=== PATIENT | female | born 1990 | race Caucasian/White ===

== ENCOUNTER → 2019-03-20 | Outpatient (REF) | payer BC ==
[2019-03-20 13:02] LABS: APPEARANCE, URINE HAZY (CLEAR); BACTERIA, URINE AUTO 1+ (NEGATIVE); BILIRUBIN, URINE AUTO NEGATIVE (NEGATIVE); BLOOD, URINE BLOOD NEGATIVE (NEGATIVE); COLOR, URINE YELLOW (YELLOW); GLUCOSE, URINE (UA) AUTO NEGATIVE (NEGATIVE); KETONE, URINE AUTO NEGATIVE (NEGATIVE); LEUKOCYTE ESTERASE, URINE AUTO NEGATIVE (NEGATIVE); MUCUS, URINE SMALL (NEGATIVE); NITRITE, URINE AUTO NEGATIVE (NEGATIVE); PROTEIN, URINE AUTO NEGATIVE (NEGATIVE); RBC, URINE AUTO 2 /HPF (0-3); SPECIFIC GRAVITY URINE AUTO 1.023 (1.002-1.035); SQUAMOUS EPITHELIAL CELL UR AU 1 /HPF (0-6); UROBILINOGEN, URINE AUTO 0.2 mg/dL (0.0-2.0); WBC, URINE AUTO 0 /HPF (0-3)
[2019-03-20 13:08] LABS: BASO # 0.1 10^3/uL (0.0-0.2); BASO % 1.3 % (0.0-1.0); EOS # 0.1 10^3/uL (0.0-0.5); EOS % 1.1 % (0.0-3.0); HEMATOCRIT 37.8 % (36.0-47.0); HEMOGLOBIN 11.5 g/dl (12.0-15.5); LYMPH # 1.3 10^3/uL (1.5-5.0); LYMPH % 28.2 % (24.0-44.0); MEAN CORPUSCULAR HEMOGLOBIN 26.3 pg (27.0-33.0); MEAN CORPUSCULAR HGB CONC 30.4 g/dl (32.0-36.5); MEAN CORPUSCULAR VOLUME 86.5 fl (80.0-96.0); MONO # 0.5 10^3/uL (0.0-0.8); MONO % 11.2 % (0.0-5.0); NEUTROPHILS # 2.7 10^3/uL (1.5-8.5); NEUTROPHILS % 57.8 % (36.0-66.0); PLATELET COUNT, AUTOMATED 345 10^3/uL (150-450); RED BLOOD COUNT 4.37 10^6/uL (4.00-5.40); WHITE BLOOD COUNT 4.7 10^3/uL (4.0-10.0)
[2019-03-20 13:18] LABS: ALBUMIN 3.8 GM/DL (3.2-5.2); ALT/SGPT 35 U/L (12-78); BILIRUBIN,TOTAL 0.3 MG/DL (0.2-1.0); BLOOD UREA NITROGEN 14 MG/DL (7-18); CARBON DIOXIDE LEVEL 31 MEQ/L (21-32); CHLORIDE LEVEL 103 MEQ/L (98-107); CHOLESTEROL LEVEL 205 MG/DL (<200); CREATININE FOR GFR 0.72 MG/DL (0.55-1.30); FREE T4 0.97 NG/DL (0.76-1.46); GLOMERULAR FILTRATION RATE > 60.0 (>60); GLUCOSE, FASTING 80 MG/DL (70-100); HDL CHOLESTEROL 94 MG/DL (>40); LDL CHOLESTEROL 102 MG/DL (<100); NON-HDL-C 111 MG/DL; POTASSIUM SERUM 4.1 MEQ/L (3.5-5.1); SODIUM LEVEL 139 MEQ/L (136-145); TOTAL PROTEIN 7.4 GM/DL (6.4-8.2); TRIGLYCERIDES LEVEL 43 MG/DL (<150)
[2019-03-20 13:21] LABS: TOTAL 25(OH) VITAMIN D 52.5 NG/ML (30.0-100.0)
[2019-03-20 14:39] LABS: HEMOGLOBIN A1c 5.6 %
== END ==
LOC: M LAB REF 12:11
PROVIDERS: ATTEND Nurse Practitioner Family
DX: Z13.29 Encounter for screening for other suspected endocrine disorder (principal); Z13.9 Encounter for screening, unspecified

== ENCOUNTER → 2020-05-27 | Outpatient (REF) | payer OTHER ==
[2020-05-27 17:44] LABS: BASO # 0.1 10^3/uL (0.0-0.2); BASO % 0.6 % (0.0-1.0); EOS # 0.1 10^3/uL (0.0-0.5); EOS % 0.9 % (0.0-3.0); HEMATOCRIT 41.4 % (36.0-47.0); HEMOGLOBIN 12.8 g/dl (12.0-15.5); LYMPH # 1.6 10^3/uL (1.5-5.0); MEAN CORPUSCULAR HEMOGLOBIN 25.8 pg (27.0-33.0); MEAN CORPUSCULAR HGB CONC 30.9 g/dl (32.0-36.5); MEAN CORPUSCULAR VOLUME 83.5 fl (80.0-96.0); MONO # 0.6 10^3/uL (0.0-0.8); MONO % 7.6 % (0.0-5.0); NEUTROPHILS # 5.7 10^3/uL (1.5-8.5); NEUTROPHILS % 70.5 % (36.0-66.0); PLATELET COUNT, AUTOMATED 311 10^3/uL (150-450); RED BLOOD COUNT 4.96 10^6/uL (4.00-5.40); WHITE BLOOD COUNT 8.1 10^3/uL (4.0-10.0)
[2020-05-27 18:36] LABS: ALBUMIN 4.3 GM/DL (3.2-5.2); ALT/SGPT 20 U/L (12-78); BILIRUBIN,TOTAL 0.6 MG/DL (0.2-1.0); BLOOD UREA NITROGEN 11 MG/DL (7-18); CALCIUM LEVEL 9.3 MG/DL (8.5-10.1); CARBON DIOXIDE LEVEL 26 MEQ/L (21-32); CHLORIDE LEVEL 102 MEQ/L (98-107); CREATININE FOR GFR 0.61 MG/DL (0.55-1.30); GLOMERULAR FILTRATION RATE > 60.0 (>60); GLUCOSE, FASTING 58 MG/DL (70-100); HCG, SERUM QUANTITATIVE 82951 MIU/ML; POTASSIUM SERUM 4.3 MEQ/L (3.5-5.1); SODIUM LEVEL 136 MEQ/L (136-145); TOTAL PROTEIN 8.2 GM/DL (6.4-8.2)
== END ==
LOC: M LAB REF 16:51
PROVIDERS: ATTEND Physician Assistant
DX: Z33.1 Pregnant state, incidental (principal)

== ENCOUNTER → 2020-06-10 | Outpatient (REF) | payer OTHER ==
[2020-06-10 11:36] LABS: HEMATOCRIT 36.3 % (36.0-47.0); HEMOGLOBIN 11.3 g/dl (12.0-15.5); MEAN CORPUSCULAR HEMOGLOBIN 26.2 pg (27.0-33.0); MEAN CORPUSCULAR HGB CONC 31.1 g/dl (32.0-36.5); PLATELET COUNT, AUTOMATED 376 10^3/uL (150-450); RED BLOOD COUNT 4.32 10^6/uL (4.00-5.40); WHITE BLOOD COUNT 6.7 10^3/uL (4.0-10.0)
[2020-06-10 12:53] LABS: HEPATITIS C VIRUS ABY INDEX < 0.0 INDEX (<0.8); HIV 1&2 SCREEN CENTAUR NEGATIVE (NEGATIVE)
[2020-06-11 12:27] LABS: CHLAMYDIA DNA AMPLIFICATION NEGATIVE (NEGATIVE); GC DNA AMPLIFICATION NEGATIVE (NEGATIVE)
== END ==
LOC: M PLALAB 09:00
PROVIDERS: ATTEND Obstetrics & Gynecology
DX: Z34.81 Encounter for supervision of other normal pregnancy, first trimester (principal)

== ENCOUNTER → 2020-08-26 | Outpatient (CLI) | payer OTHER ==
--- NOTE | 2020-08-26 11:06 | REP ---
INDICATION: ANATOMY COMPARISON: None. TECHNIQUE: Transabdominal obstetrical ultrasound with color Doppler evaluation. FINDINGS: Examination demonstrates a single live intrauterine in cephalic presentation. motion is identified by technologist. Placenta is noted posterior and grade 1 without evidence for placenta previa or abruption. Amniotic fluid volume is normal. Cervix measures 3.3 cm in length and appears closed.. Gestational age by LMP 20 weeks 0 days with STAR 01/13/2021. Gestational age by current measurements 19 weeks 6 days 9 with STAR 02/13/2021. FHR equals 146 beats per minute. BPD: 4.5 cm at 19 weeks 3 days HC: 17.7 cm at 20 weeks 1 day AC: 14.7 cm at 20 weeks 0 days FL: 3.2 cm at 19 weeks 6 days HL: 2.9 cm at 19 weeks 4 days HC/AC: 1.20 Estimated weight 323 grams (51stpercentile). Anatomical assessment demonstrates normal structures including cranium, choroid plexus, cavum, cerebellum/posterior fossa, facial features, lungs, four-chamber heart/ventricular outflow tracts, diaphragm, stomach, cord insertion/three-vessel cord, kidneys/bladder, spine, and extremities. IMPRESSION: Single live intrauterine in cephalic presentation demonstrating appropriate estimated weight. Anatomical assessment is complete and normal. <Electronically signed by Igor Gonzalez > 08/26/20 [id number]
== END ==
LOC: M WHC 07:57
PROVIDERS: ATTEND Advanced Practice Midwife
DX: Z36.89 Encounter for other specified antenatal screening (principal); Z3A.20 20 weeks gestation of pregnancy

== ENCOUNTER → 2020-09-29 | Outpatient (REF) | payer OTHER ==
[2020-09-29 13:47] LABS: HEMATOCRIT 27.6 % (36.0-47.0); HEMOGLOBIN 8.2 g/dl (12.0-15.5); MEAN CORPUSCULAR HEMOGLOBIN 24.5 pg (27.0-33.0); MEAN CORPUSCULAR HGB CONC 29.7 g/dl (32.0-36.5); MEAN CORPUSCULAR VOLUME 82.4 fl (80.0-96.0); PLATELET COUNT, AUTOMATED 334 10^3/uL (150-450); RED BLOOD COUNT 3.35 10^6/uL (4.00-5.40); WHITE BLOOD COUNT 11.7 10^3/uL (4.0-10.0)
== END ==
LOC: M PLALAB 08:12
PROVIDERS: ATTEND Advanced Practice Midwife
DX: Z34.82 Encounter for supervision of other normal pregnancy, second trimester (principal)

== ENCOUNTER 2020-10-13 07:08 | Outpatient (CLI) | payer OTHER ==
[~2020-10-13] VITALS: Ht 157.5 cm; Wt 65.9 kg
[~2020-10-13 07:08] MED LIST: IRON SUCROSE 500 MG in NS 250 ML OVER 4 HRS IV ONE
[2020-10-13 07:17] VITALS: BP 120/57
[2020-10-13] MEDS ORDERED: ZOLO25TA PO (07:33)
[2020-10-13] MEDS ORDERED: MULTTAB20 PO (07:33)
[2020-10-13] MEDS ORDERED: CLAR10CA3 PO (07:33)
[2020-10-13 08:00] VITALS: BP 118/60
[2020-10-13 09:00] VITALS: BP 115/69
[2020-10-13 10:00] VITALS: BP 112/60
[2020-10-13 11:00] VITALS: BP 110/58
[2020-10-13 12:00] VITALS: BP 113/58
== END 2020-10-13 12:00 | disposition home or self-care (01) ==
LOC: M INFU 07:08
PROVIDERS: ATTEND Advanced Practice Midwife
DX: D50.9 Iron deficiency anemia, unspecified (principal)
CPT/HCPCS: 96365; 96366; J1756

== ENCOUNTER → 2020-11-23 | Outpatient (CLI) | payer OTHER ==
[~2020-11-23] MED LIST changes: +CLAR10CA3 PO; -IRON SUCROSE 500 MG in NS 250 ML OVER 4 HRS IV ONE; +MULTTAB20 PO; +ZOLO25TA PO
[2020-11-23 14:11] LABS: HEMATOCRIT 36.1 % (36.0-47.0); HEMOGLOBIN 11.2 g/dl (12.0-15.5); MEAN CORPUSCULAR HEMOGLOBIN 27.9 pg (27.0-33.0); MEAN CORPUSCULAR VOLUME 89.8 fl (80.0-96.0); PLATELET COUNT, AUTOMATED 346 10^3/uL (150-450); RED BLOOD COUNT 4.02 10^6/uL (4.00-5.40); WHITE BLOOD COUNT 13.4 10^3/uL (4.0-10.0)
== END ==
LOC: M PLALAB 10:07
PROVIDERS: ATTEND Advanced Practice Midwife
DX: O99.013 Anemia complicating pregnancy, third trimester (principal); D64.9 Anemia, unspecified

== ENCOUNTER → 2020-12-14 | Outpatient (REF) | payer OTHER | LOC: M SFHCWAGY 13:06 | PROVIDERS: ATTEND Advanced Practice Midwife | DX: Z36.89 Encounter for other specified antenatal screening (principal); Z3A.35 35 weeks gestation of pregnancy ==

== ENCOUNTER 2021-01-14 19:36 | Inpatient (IN) | payer BC, OTHER ==
[~2021-01-14] VITALS: Ht 160 cm; Wt 77.9 kg
[2021-01-14 19:54] VITALS: BP 134/76
[2021-01-14 20:36] VITALS: BP 128/77
[2021-01-14 21:41] VITALS: BP 125/71
[2021-01-14] MEDS: LR 1,000 ML IV SCH (22:42)
[2021-01-14 22:56] LABS: HEMATOCRIT 41.6 % (36.0-47.0); HEMOGLOBIN 14.1 g/dl (12.0-15.5); MEAN CORPUSCULAR HEMOGLOBIN 30.5 pg (27.0-33.0); MEAN CORPUSCULAR HGB CONC 33.9 g/dl (32.0-36.5); PLATELET COUNT, AUTOMATED 263 10^3/uL (150-450); RED BLOOD COUNT 4.62 10^6/uL (4.00-5.40); WHITE BLOOD COUNT 14.9 10^3/uL (4.0-10.0)
[2021-01-14 23:14] VITALS: BP 136/76
--- NOTE | 2021-01-14 23:48 | HPEPDOC ---
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 Past Medical History Surgical History: Morven teeth Family History Significant Family History: Cancer Social History Marital Status: Psychosocial History: Anxiety, Depression * Smoker: non-smoker Alcohol: Denies Drugs: denies Allergies Coded Allergies: Penicillins (Verified Allergy, Intermediate, HIVES AND ITCHING, 10/13/20) Sulfa (Sulfonamide Antibiotics) (Verified Allergy, Intermediate, HIVES AND ITCHING, 10/13/20) Medications Scheduled Loratadine (Claritin) 10 Mg Capsule, 10 MG PO DAILY for allergy symptoms No122/Iron/Folic Acid ( Multi Tablet) 1 Each Tablet, 1 TAB PO DAILY Sertraline Hcl (Zoloft) 25 Mg Tablet, 25 MG PO DAILY Physical Examination Physical Examination GENERAL: Alert and oriented times three. BREAST: . ABDOMEN: Gravid and non-tender to touch. FETUS: Is vertex (VTX) by sterile vaginal examination (SVE), fetus is vertex (VTX) by Regan. HEART RATE: Regular rate and rhythm. LUNGS: Clear to auscultation (CTA). Vital Signs/I&O Vital Signs Date Time Temp Pulse Resp B/P (MAP) Pulse Ox O2 Delivery O2 Flow Rate FiO2 01/14/21 23:14 75 18 136/76 (96) Laboratory Data 24H LABS Laboratory Tests 2 01/14/21 22:10: Serology Scanned Report Hepatitis B Testing 01/14/21 22:46: Nucleated Red Blood Cells % (auto) 0.0 CBC/BMP Laboratory Tests 01/14/21 22:46 Pertinent Laboratoy Data Blood Type: A+ RBC Antibody Screen: Negative HIV: Negative Hepatitis B: Negative Hepatitis C: Negative Rapid Plasma Reagin: Nonreactive Rubella: Immune Chlamydia/Gonorrhea: Negative Group B Streptococcus: Negative Glucose Tolerance Test: 102 Anatomy Ultrasound Placenta Location: Posterior Normal Anatomy: Yes Placenta Previa: No Vaginal Examination Dilation: 3 cm Effacement: 70% Station: -2 Cervical Position: Anterior Presentation: Cephalic presentation Assessment Variability: Moderate Accelerations: Positive Tocometer Contractions: Yes Frequency: regular Assessment/Plan Assessment 30yo at 40w1d in active labor Reassuring status Plan Admit and orient. Plant Director and consent. Group B Streptococcus (GBS) negative. Labs and intravenous (IV) per unit protocol. Counseled on Pitocin and induction of labor (IOL). Anticipate normal spontaneous delivery (). C-S as appropriate. DILAN LANE MD. Jan 14, 2021 23:48
[2021-01-14] MEDS ORDERED: BUTORPHANOL 2 MG/ML INJ (J0595) IV ONE (23:50)
[2021-01-14] MEDS ORDERED: PROMETHAZINE INJ 25 MG/ML VIAL (J2550) IV PRN (23:50)
[2021-01-15] VITALS (56 sets, daily range): BP systolic 90–188; BP diastolic 47–100
[2021-01-15] MEDS ORDERED: LR 1,000 ML IV SCH (01:00)
[2021-01-15] MEDS ORDERED: OXYTOCIN DRIP 30 UNITS in IV 1 EA IV SCH ×2 (01:00→18:45)
[2021-01-15] MEDS ORDERED: FENTANYL 2MCG/ML ROPIVACAINE 0.2% IN 0.9% NACL 100ML IVBAG As Ordered ONE (05:59)
[2021-01-15] MEDS: LR 1,000 ML IV SCH ×4 (06:05→22:31)
[2021-01-15] MEDS ORDERED: NALOXONE INJ 0.4MG/1ML VIAL (J2310 PER 1MG) IV PRN ×3 (07:00→17:36)
[2021-01-15] MEDS ORDERED: ONDANSETRON 4MG/2ML VIAL IV PRN ×4 (07:00→19:10)
[2021-01-15] MEDS ORDERED: LACTATED RINGER'S 1000 ML IV PRN (07:00)
[2021-01-15] MEDS ORDERED: REFRIGERATOR IV KEYS XX PRN (07:00)
[2021-01-15] MEDS ORDERED: diphenhydrAMINE 50MG/ML VIAL (J1200) IV PRN ×2 (07:00→17:36)
[2021-01-15] MEDS ORDERED: EPIDURAL COMMENT XX SCH (07:00)
[2021-01-15] MEDS ORDERED: EPIDURAL/PCA KEYS XX PRN (07:00)
[2021-01-15] MEDS: FENTANYL/ROPIVACAINE/NACL BAG 100 ML EPIDURAL SCH ×2 (07:07→15:01)
[2021-01-15] MEDS ORDERED: OXYTOCIN 30 UNITS IN 0.9% NaCl 500ML IV BAG (J2590) As Ordered ONE ×2 (07:13→17:30)
[2021-01-15] MEDS: ePHEDrine SULFATE 25 MG/5 ML(5MG/ML) SYRINGE IV PRN ×2 (07:48→08:06)
--- NOTE | 2021-01-15 17:20 | IPNPDOC ---
Obstetrical Progress Note Date of Service Jan 15, 2021 Subjective 30yo pushing for >2 hrs with no progression or further decent. Cat II tracing with tachycardia and repetitive lates. Objective Vital Signs Date Time Temp Pulse Resp B/P (MAP) Pulse Ox O2 Delivery O2 Flow Rate FiO2 01/15/21 16:30 97 134/66 (88) 01/15/21 16:27 99.1 20 01/15/21 07:00 Room Air Assessment Decelerations: Late Heart Rate Tracing: Category II Tocometer Contractions: Yes Frequency: regular Sterile Vaginal Examination Dilation: complete Effacement (%): 100% Station: +1 Postion/Presentation: Cephalic presentation Assessment and Plan Age: 30 Status: Non-reassuring Anticipate: Section Additional Comments Patient's been counseled regarding arrest of descent. Discussed proceeding with section for the indication. Anesthesia and OR team notified DIALN LANE MD. Jan 15, 2021 17:20
[2021-01-15] MEDS ORDERED: MORPHINE PRES-FREE INJ 10 MG/10 ML VIAL (J2274) As Ordered ONE (17:29)
[2021-01-15] MEDS ORDERED: AZITHROMYCIN INJ 500 MG, VIAL MATE ADAPTER 1 EACH in NS 250 ML IV ONE (17:30)
[2021-01-15] MEDS ORDERED: LIDOCAINE 2% W/EPINEPHRINE 20ML VIAL **PRES FREE As Ordered ONE (17:30)
[2021-01-15] MEDS ORDERED: BICITRA 30ML SOLN UDC PO ONE (17:30)
[2021-01-15] MEDS ORDERED: ceFAZolin SOD 2 GM in IV 1 EA IV ONE (17:30)
[2021-01-15] MEDS ORDERED: BICITRA 30ML SOLN UDC As Ordered ONE (17:34)
[2021-01-15] MEDS ORDERED: METOCLOPRAMIDE INJ 10MG/2ML VIAL (J2765 PER 1) IV PRN (17:36)
[2021-01-15] MEDS ORDERED: ceFAZolin 2 GM/D5W 50 ML IV BAG (J0690 PER 500MG) As Ordered ONE (17:36)
[2021-01-15] MEDS ORDERED: NALBUPHINE HCL 10 MG/ML AMP (J2300) IV PRN (17:36)
[2021-01-15] MEDS ORDERED: PHENYLephrine 500MCG 5ML (100MCG/ML) SYRINGE As Ordered ONE (17:37)
[2021-01-15] MEDS ORDERED: ePHEDrine SULFATE 25 MG/5 ML(5MG/ML) SYRINGE As Ordered ONE (17:37)
[2021-01-15] MEDS ORDERED: AZITHROMYCIN INJ 500MG VIAL (J0456 PER 500MG) As Ordered ONE (17:37)
[2021-01-15] MEDS ORDERED: KETOROLAC 60MG 2ML VIAL As Ordered ONE (17:37)
[2021-01-15] MEDS ORDERED: dexameTHASONE 4 MG/ML 1ML VIAL (J1100 PER 1MG) As Ordered ONE (17:37)
[2021-01-15] MEDS ORDERED: ONDANSETRON 4MG/2ML VIAL As Ordered ONE (17:37)
[2021-01-15] MEDS ORDERED: OXYTOCIN INJ 10 UNITS/ML VIAL (J2590) As Ordered ONE (17:39)
[2021-01-15 18:25] LABS: CORD GAS ABE V -4.5; CORD GAS HCO3 V 22.9 MEQ/L; CORD GAS O2 SAT V 38.4 %; CORD GAS PH V 7.271 UNITS; CORD GAS PO2 V 19.7 mmHg; CORD GAS SBC V 19.3 MEQ/L; CORD GAS TCO2 V 24.5 MEQ/L
[2021-01-15 18:25] LABS: CORD GAS ABE A -4.9; CORD GAS HCO3 A 24.5 MEQ/L; CORD GAS O2 SAT A 24.9 %; CORD GAS PCO2 A 63.1 mmHg; CORD GAS PH A 7.207 UNITS; CORD GAS SBC A 18.7 MEQ/L; CORD GAS TCO2 A 26.4 MEQ/L
[2021-01-15] MEDS ORDERED: MEASLES,MUMPS,RUBELLA VACCINE INJ (MMR-II) (90707) SC SCH (18:45)
[2021-01-15] MEDS ORDERED: PERCOCET 5MG/325MG TAB PO PRN (18:45)
[2021-01-15] MEDS ORDERED: MOM 30ML SUSPENSION UDC PO PRN (18:45)
[2021-01-15] MEDS ORDERED: SIMETHICONE 80MG CHEW TAB PO PRN (18:45)
[2021-01-15] MEDS ORDERED: RHOGAM 300 MCG (1500 IU) INJ (J2790) IM SCH (18:45)
[2021-01-15] MEDS ORDERED: oxyCODONE 5MG TAB PO PRN (19:10)
[2021-01-15] MEDS ORDERED: fentaNYL 100 MCG/2 ML INJECTION (J3010) IV PRN (19:10)
[2021-01-15] MEDS: DOCUSATE SODIUM 100MG CAPSULE PO SCH (20:58)
--- NOTE | 2021-01-15 21:32 | ROOPDOC ---
[facility] Report Of Operation Report of Operation DATE OF PROCEDURE: 01/15/21 SURGEON: Mansi Mcclelland M.D. TURBINE OPERATOR: Jameel De La Garza DO( essential for tissue retractions, exposure and delivery of ) PROCEDURE: Primary section PREOPERATIVE DIAGNOSIS: 1. Arrest of descent POSTOPERATIVE DIAGNOSIS: 1. Arrest of descent ANESTHESIA: Epidural ESTIMATED BLOOD LOSS: 600 mL URINE OUTPUT: 100 mL INTRAVENOUS FLUIDS: 1500 mL of lactated Ringer's solution PREOPERATIVE ANTIBIOTICS:. 2 g of Ancefand 500 azithromycin OPERATIVE FINDINGS: Liveborn female infant, Apgars 7 and 9. Weight 3410 g or 6 lbs. 8 oz. SPECIMENS: Cord gases DESCRIPTION OF PROCEDURE: After informed consent was obtained and written consent was reviewed. The patient was brought to the operating room. She was then placed in the supine position with a left lateral tilt. Whelan catheter was placed and to gravity. Patient was then prepped and draped in the normal sterile fashion. A timeout operating room was performed identifying the patient, procedure be performed as well as drug allergies. Anesthesia was tested and deemed to be adequate. Pfannenstiel skin incision was made and this was carried down to the underlying rectus fascia. The fascia was then scored and this incision was extended bilaterally. The fascia was then dissected off the underlying rectus muscle superiorly and inferiorly. The rectus muscles were then in the midline. The peritoneum is then entered. Vesicouterine p eritoneum was then tented and excised and a bladder flap was created. Mobius retractor was then placed. Next, a curvilinear incision was then made in the lower uterine segment. The head was brought to the level of the incision atraumatically and delivered along the shoulders and corpus. The cord was clamped x2. The infant was brought over to the warmer with a good cry. Placenta was drained and delivered grossly intact. The uterus was cleared of all clots and debris and the uterine incision was then closed using 0 Vicryl in a running locking fashion followed by a second layer of 0 Vicryl in a running nonlocking fashion for imbrication. The abdomen suctioned. Surgical sites reinspected and noted be hemostatic. The retractor was then removed. The anterior peritoneum was then reapproximated with 3-0 Vicryl. The rectus muscles were reapproximated 3-0 Vicryl. The fascia was then closed using 0 Vicryl in a running nonlocking fashion. The subcutaneous tissues was then irrigated and suctioned. Subcutaneous tissue was reapproximated using 3-0 Vicryl. Several subdermal stitch is placed using 3-0 Vicryl and the skin was closed with 4-0 Monocryl and subcuticular fashion. This incision was then cleaned and dried and was dressed. The patient was then taken to recovery in stable condition. All counts were correct. . My surgical elastic knitter Dr. De La Garza played in an essential role during the operation. He assisted with tissue identification retraction, delivery of the , as well as wound closure. MANSI MCCLELLAND MD. Jan 15, 2021 21:32
[2021-01-16] MEDS: KETOROLAC 30 MG/ML 1ML VIAL IV SCH ×3 (00:14→12:32)
[2021-01-16 02:00] VITALS: BP_SYST 110; BP_SYST 131; BP_DIAS 65; BP_DIAS 68
[2021-01-16] MEDS: LR 1,000 ML IV SCH (06:29)
[2021-01-16] MEDS: PRENATAL VITAMINS CHEWABLE TABLET PO SCH (08:25)
[2021-01-16] MEDS: DOCUSATE SODIUM 100MG CAPSULE PO SCH ×2 (08:26→20:05)
[2021-01-16 08:35] LABS: HEMATOCRIT 37.1 % (36.0-47.0); HEMOGLOBIN 12.5 g/dl (12.0-15.5); MEAN CORPUSCULAR HEMOGLOBIN 31.1 pg (27.0-33.0); MEAN CORPUSCULAR HGB CONC 33.7 g/dl (32.0-36.5); MEAN CORPUSCULAR VOLUME 92.3 fl (80.0-96.0); PLATELET COUNT, AUTOMATED 226 10^3/uL (150-450); RED BLOOD COUNT 4.02 10^6/uL (4.00-5.40); WHITE BLOOD COUNT 23.5 10^3/uL (4.0-10.0)
[2021-01-16 09:56] VITALS: BP 88/46
[2021-01-16 13:56] VITALS: BP 96/65
[2021-01-16 17:53] VITALS: BP 88/53
[2021-01-16] MEDS: PERCOCET 5MG/325MG TAB PO PRN ×2 (18:39→23:59)
[2021-01-16] MEDS: IBUPROFEN 800 MG TAB PO SCH (20:06)
[2021-01-16 22:00] VITALS: BP 128/75
[2021-01-17 01:53] VITALS: BP 98/49
[2021-01-17] MEDS: IBUPROFEN 800 MG TAB PO SCH (04:21)
[2021-01-17 05:46] VITALS: BP 115/64
[2021-01-17 05:55] VITALS: BP 138/62
[2021-01-17] MEDS: DOCUSATE SODIUM 100MG CAPSULE PO SCH (08:41)
[2021-01-17] MEDS: PRENATAL VITAMINS CHEWABLE TABLET PO SCH (08:41)
[2021-01-17] MEDS ORDERED: INFLUENZA QUADRIVALENT PF VACCINE 0.5ML SYRINGE IM ONE (09:00)
[2021-01-17] MEDS ORDERED: IBUP80TA PO (09:15)
[2021-01-17] MEDS ORDERED: PERCOCET PO (09:15)
[2021-01-17 10:00] VITALS: BP 137/66
--- NOTE | 2021-01-17 10:14 | DS.PDOC ---
Discharge Summary General Date of Admission Jan 14, 2021 at 22:07 Discharge Summary PROCEDURES PERFORMED DURING STAY: [None]. ADMITTING DIAGNOSES: 1. . DISCHARGE DIAGNOSES: 1. . COMPLICATIONS/CHIEF COMPLAINT: LABOR. HISTORY OF PRESENT ILLNESS: . HOSPITAL COURSE: . DISCHARGE MEDICATIONS: Please see below. ALLERGIES: Please see below. PHYSICAL EXAMINATION ON DISCHARGE: VITAL SIGNS: Please see below. GENERAL: HEENT: NECK: CARDIOVASCULAR EXAMINATION: RESPIRATORY EXAMINATION: ABDOMINAL EXAMINATION: EXTREMITIES: SKIN: NEUROLOGICAL EXAMINATION: PSYCHIATRIC EXAMINATION: LABORATORY DATA: Please see below. IMAGING: PROGNOSIS: ACTIVITY: [As tolerated]. DIET: DISCHARGE PLAN: DISPOSITION: . DISCHARGE INSTRUCTIONS: 1. . ITEMS TO FOLLOWUP ON ON OUTPATIENT: 1. . DISCHARGE CONDITION: [Stable]. TIME SPENT ON DISCHARGE: minutes. Vital Signs/I&Os Vital Signs Date Time Temp Pulse Resp B/P (MAP) Pulse Ox O2 Delivery O2 Flow Rate FiO2 01/17/21 10:00 98.2 88 16 137/66 (89) 97 Room Air I&O- Last 24 Hours up to 6 AM 01/17/21 06:00 Output Total 350 ml Balance -350 ml Discharge Medications Scheduled Ibuprofen (Ibuprofen) 800 Mg Tablet, 800 MG PO Q8H Loratadine (Claritin) 10 Mg Capsule, 10 MG PO DAILY for allergy symptoms, (Reported) No122/Iron/Folic Acid ( Multi Tablet) 1 Each Tablet, 1 TAB PO DAILY, (Reported) Sertraline Hcl (Zoloft) 25 Mg Tablet, 25 MG PO DAILY, (Reported) Scheduled PRN Oxycodone/Acetaminophen (Oxycodone-Acetaminophen 5-325) 1 Each Tablet, 1 TAB PO Q4H PRN for MODERATE PAIN (PS 5-7) Allergies Coded Allergies: Penicillins (Verified Allergy, Intermediate, HIVES AND ITCHING, 10/13/20) Sulfa (Sulfonamide Antibiotics) (Verified Allergy, Intermediate, HIVES AND ITCHING, 10/13/20) DILAN LANE MD. Jan 17, 2021 10:14
== END 2021-01-17 12:00 | disposition home or self-care (01) | DRG 540 ==
LOC: M LDO 19:36 → M LDI 22:07 → M OBS 01-15 20:24
PROVIDERS: ADMIT Obstetrics & Gynecology; ATTEND Obstetrics & Gynecology
PROC: 10D00Z1 Extraction of Products of Conception, Low, Open Approach (ICD-10-PCS; principal; 2021-01-15 17:30)
DX: O48.0 Post-term pregnancy (principal); Z3A.40 40 weeks gestation of pregnancy; Z37.0 Single live birth; O32.4XX0 Maternal care for high head at term, not applicable or unspecified; O76 Abnormality in fetal heart rate and rhythm complicating labor and delivery

== ENCOUNTER → 2021-06-27 | Outpatient (REF) | payer BC ==
[~2021-06-27] MED LIST changes: +IBUP80TA PO; +PERCOCET PO
== END ==
LOC: M SFHCWAGY 16:56
PROVIDERS: ATTEND Obstetrics & Gynecology
DX: Z12.4 Encounter for screening for malignant neoplasm of cervix (principal); R87.610 Atypical squamous cells of undetermined significance on cytologic smear of cervix (ASC-US)
CPT/HCPCS: 87624; G0123

== ENCOUNTER → 2022-08-07 | Outpatient (REF) | payer BC ==
[2022-08-07 16:35] LABS: BASO # 0.1 10^3/uL (0.0-0.2); BASO % 0.7 % (0.0-1.0); EOS # 0.1 10^3/uL (0.0-0.5); EOS % 1.9 % (0.0-3.0); HEMATOCRIT 43.8 % (36.0-47.0); HEMOGLOBIN 14.1 g/dl (12.0-15.5); LYMPH % 29.5 % (24.0-44.0); MEAN CORPUSCULAR HEMOGLOBIN 29.7 pg (27.0-33.0); MEAN CORPUSCULAR HGB CONC 32.2 g/dl (32.0-36.5); MEAN CORPUSCULAR VOLUME 92.2 fl (80.0-96.0); MONO # 0.5 10^3/uL (0.0-0.8); MONO % 7.3 % (2.0-8.0); NEUTROPHILS # 4.1 10^3/uL (1.5-8.5); NEUTROPHILS % 60.3 % (36.0-66.0); PLATELET COUNT, AUTOMATED 327 10^3/uL (150-450); RED BLOOD COUNT 4.75 10^6/uL (4.00-5.40); WHITE BLOOD COUNT 6.9 10^3/uL (4.0-10.0)
[2022-08-07 17:04] LABS: IRON (FE) 200 UG/DL (50-170); PERCENT SATURATION 56.7 % (13.2-45.0); TOTAL IRON BINDING CAPACITY 353 UG/DL (250-425)
[2022-08-07 17:05] LABS: ALBUMIN 3.6 G/DL (3.2-5.2); ALKALINE PHOSPHATASE 56 U/L (46-116); ALT/SGPT 26 U/L (7.0-40); AST/SGOT 22 U/L (<34); BILIRUBIN,TOTAL 0.3 MG/DL (0.3-1.2); BLOOD UREA NITROGEN 12 MG/DL (9-23); CALCIUM LEVEL 8.6 MG/DL (8.5-10.1); CARBON DIOXIDE LEVEL 27 MMOL/L (20-31); CHLORIDE LEVEL 105 MMOL/L (98-107); CHOLESTEROL LEVEL 158 MG/DL (<200); CHOLESTEROL RISK RATIO 2.58 (<5); CREATININE FOR GFR 0.68 MG/DL (0.55-1.30); GLOMERULAR FILTRATION RATE > 60.0 (>60); GLUCOSE, FASTING 70 MG/DL (60-100); HDL CHOLESTEROL 61.2 MG/DL (>40); LDL CHOLESTEROL 75.6 MG/DL (<100); NON-HDL-C 96.8 MG/DL; POTASSIUM SERUM 4.6 MMOL/L (3.5-5.1); SODIUM LEVEL 138 MMOL/L (136-145); TOTAL 25(OH) VITAMIN D 52.2 NG/ML (20.0-100.0); TOTAL PROTEIN 6.9 G/DL (5.7-8.2); TRIGLYCERIDES LEVEL 106 MG/DL (<150)
[2022-08-07 17:06] LABS: FERRITIN 12.3 NG/ML (7.3-270.7); FREE T4 1.12 NG/DL (0.89-1.76)
[2022-08-07 17:26] LABS: THYROID STIMULATING HORMONE 1.823 uIU/ML (0.55-4.78)
== END ==
LOC: M LAB REF 12:06
PROVIDERS: ATTEND Nurse Practitioner Family
DX: Z13.228 Encounter for screening for other metabolic disorders (principal)

== ENCOUNTER → 2022-08-21 | Outpatient (REF) | payer BC, OTHER | LOC: M SFHCWAGY 13:19 | PROVIDERS: ATTEND Obstetrics & Gynecology | DX: Z12.4 Encounter for screening for malignant neoplasm of cervix (principal); Z77.9 Other contact with and (suspected) exposures hazardous to health | CPT/HCPCS: 87624; G0123 ==

== ENCOUNTER → 2022-11-21 | Outpatient (REF) | payer BC, OTHER ==
[~2022-11-21] MED LIST changes: +ZOLO100T PO
== END ==
LOC: M LAB REF 11:31
PROVIDERS: ATTEND Student in an Organized Health Care Education/Training Program
DX: R10.813 Right lower quadrant abdominal tenderness (principal)

== ENCOUNTER → 2023-08-21 | Outpatient (REF) | payer OTHER | LOC: M PLALAB 15:57 | PROVIDERS: ATTEND Obstetrics & Gynecology | DX: Z01.419 Encounter for gynecological examination (general) (routine) without abnormal findings (principal) ==

== ENCOUNTER → 2023-09-09 | Outpatient (REF) | payer OTHER ==
[2023-09-09 14:10] LABS: THYROID STIMULATING HORMONE 2.748 uIU/ML (0.55-4.78); TOTAL 25(OH) VITAMIN D 45.9 NG/ML (20.0-100.0)
[2023-09-09 14:11] LABS: ALBUMIN 3.4 G/DL (3.2-5.2); ALKALINE PHOSPHATASE 59 U/L (46-116); ALT/SGPT 28 U/L (7.0-40); AST/SGOT 22 U/L (<34); BILIRUBIN,TOTAL 0.3 MG/DL (0.3-1.2); BLOOD UREA NITROGEN 19 MG/DL (9-23); CALCIUM LEVEL 8.6 MG/DL (8.5-10.1); CARBON DIOXIDE LEVEL 30 MMOL/L (20-31); CHLORIDE LEVEL 101 MMOL/L (98-107); CHOLESTEROL LEVEL 180 MG/DL (<200); CHOLESTEROL RISK RATIO 2.31 (<5); CREATININE FOR GFR 0.74 MG/DL (0.55-1.30); GLOMERULAR FILTRATION RATE > 60.0 (>60); GLUCOSE, FASTING 76 MG/DL (60-100); HDL CHOLESTEROL 77.9 MG/DL (>40); LDL CHOLESTEROL 89.3 MG/DL (<100); NON-HDL-C 102.1 MG/DL; POTASSIUM SERUM 4.4 MMOL/L (3.5-5.1); SODIUM LEVEL 138 MMOL/L (136-145); TOTAL PROTEIN 6.5 G/DL (5.7-8.2); TRIGLYCERIDES LEVEL 64 MG/DL (<150)
[2023-09-09 14:14] LABS: BASO # 0.1 10^3/uL (0.0-0.2); BASO % 0.9 % (0.0-1.0); EOS # 0.1 10^3/uL (0.0-0.5); HEMATOCRIT 42.8 % (36.0-47.0); HEMOGLOBIN 14.1 g/dl (12.0-15.5); LYMPH # 1.7 10^3/uL (1.5-5.0); LYMPH % 30.8 % (24.0-44.0); MEAN CORPUSCULAR HEMOGLOBIN 31.1 pg (27.0-33.0); MEAN CORPUSCULAR HGB CONC 32.9 g/dl (32.0-36.5); MEAN CORPUSCULAR VOLUME 94.3 fl (80.0-96.0); MONO # 0.4 10^3/uL (0.0-0.8); MONO % 7.9 % (2.0-8.0); NEUTROPHILS # 3.3 10^3/uL (1.5-8.5); NEUTROPHILS % 58.2 % (36.0-66.0); PLATELET COUNT, AUTOMATED 290 10^3/uL (150-450); RED BLOOD COUNT 4.54 10^6/uL (4.00-5.40); WHITE BLOOD COUNT 5.6 10^3/uL (4.0-10.0)
== END ==
LOC: M LAB REF 12:57
PROVIDERS: ATTEND Nurse Practitioner Family
DX: R53.83 Other fatigue (principal); E55.9 Vitamin D deficiency, unspecified

== ENCOUNTER → 2023-09-25 | Outpatient (CLI) | payer OTHER | LOC: M PLALAB 09:00 | PROVIDERS: ATTEND Obstetrics & Gynecology | DX: Z80.41 Family history of malignant neoplasm of ovary (principal) ==

== ENCOUNTER 2023-11-26 07:32 | Day surgery (SDC) | payer OTHER ==
[~2023-11-26] VITALS: Ht 160 cm; Wt 62.4 kg
[~2023-11-26 07:32] MED LIST changes: +IRON65TA2 PO; +OMEG10002 PO; +PROBCAP14 PO; +THERTAB52 PO; +WELLTAB38 PO
[2023-11-26 08:29] LABS: HEMATOCRIT 41.1 % (36.0-47.0); HEMOGLOBIN 13.9 g/dl (12.0-15.5); MEAN CORPUSCULAR HEMOGLOBIN 30.9 pg (27.0-33.0); MEAN CORPUSCULAR HGB CONC 33.8 g/dl (32.0-36.5); MEAN CORPUSCULAR VOLUME 91.3 fl (80.0-96.0); PLATELET COUNT, AUTOMATED 252 10^3/uL (150-450); WHITE BLOOD COUNT 6.4 10^3/uL (4.0-10.0)
[2023-11-26] MEDS ORDERED: LR 1,000 ML IV SCH ×2 (08:40→10:55)
[2023-11-26] MEDS ORDERED: fentaNYL 100 MCG/2 ML INJECTION As Ordered ONE (08:59)
[2023-11-26] MEDS ORDERED: ONDANSETRON 4MG 2ML VIAL As Ordered ONE (09:00)
[2023-11-26] MEDS ORDERED: ROCURONIUM BROMIDE 50MG/5ML VIAL As Ordered ONE (09:00)
[2023-11-26] MEDS ORDERED: KETOROLAC 60MG 2ML VIAL As Ordered ONE (09:00)
[2023-11-26] MEDS ORDERED: SUGAMMADEX SODIUM 500 MG/5 ML VIAL (BRIDION) As Ordered ONE (09:00)
[2023-11-26] MEDS ORDERED: MIDAZOLAM INJ 2MG/2ML VIAL As Ordered ONE (09:00)
[2023-11-26] MEDS ORDERED: propofoL 200 MG/20 ML VIAL As Ordered ONE (09:00)
[2023-11-26] MEDS ORDERED: LIDOCAINE 2% 100MG/5ML SDV (FOR ANES.) As Ordered ONE (09:00)
[2023-11-26] MEDS ORDERED: ACETAMINOPHEN 1000MG 100ML IV BAG As Ordered ONE (10:35)
[2023-11-26] MEDS ORDERED: HYDROMORPHONE HCL 0.5 MG/ 0.5 ML SYRINGE IV PRN (10:55)
[2023-11-26] MEDS ORDERED: fentaNYL 100 MCG/2 ML INJECTION IV PRN (10:55)
[2023-11-26] MEDS ORDERED: PERCOCET 5MG/325MG TAB PO PRN (11:15)
[2023-11-26] MEDS: oxyCODONE 5MG TAB PO PRN (11:38)
[2023-11-26] MEDS: ONDANSETRON 4MG 2ML VIAL IV PRN (11:38)
[2023-11-26 12:45] VITALS: BP 105/62; TEMP 97.2; O2SAT 98
[2023-11-26] MEDS ORDERED: KETOROLAC 30 MG/ML 1ML VIAL IV SCH (17:00)
== END 2023-11-26 12:50 | disposition home or self-care (01) ==
LOC: M SDC 07:32
PROVIDERS: ATTEND Obstetrics & Gynecology
DX: Z30.2 Encounter for sterilization (principal); F41.9 Anxiety disorder, unspecified; F32.A Depression, unspecified; Z88.2 Allergy status to sulfonamides; Z88.0 Allergy status to penicillin; Z79.899 Other long term (current) drug therapy
CPT/HCPCS: 36415; 58661; 81025; 85027; 86850; 86900; 86901; 88302; J0131; J0665; J1100; J1885; J2250; J2405; J3010

== ENCOUNTER → 2024-06-04 | Outpatient (REF) | payer BC ==
[2024-06-04 18:52] LABS: BASO % 0.5 % (0.0-1.0); EOS % 0.5 % (0.0-3.0); HEMATOCRIT 43.7 % (36.0-47.0); HEMOGLOBIN 14.7 g/dl (12.0-15.5); LYMPH % 23.6 % (24.0-44.0); MEAN CORPUSCULAR HEMOGLOBIN 30.4 pg (27.0-33.0); MEAN CORPUSCULAR HGB CONC 33.6 g/dl (32.0-36.5); MEAN CORPUSCULAR VOLUME 90.3 fl (80.0-96.0); MONO # 0.8 10^3/uL (0.0-0.8); MONO % 9.4 % (2.0-8.0); NEUTROPHILS # 5.5 10^3/uL (1.5-8.5); NEUTROPHILS % 65.6 % (36.0-66.0); PLATELET COUNT, AUTOMATED 293 10^3/uL (150-450); RED BLOOD COUNT 4.84 10^6/uL (4.00-5.40); WHITE BLOOD COUNT 8.3 10^3/uL (4.0-10.0)
[2024-06-04 19:07] LABS: FREE T4 1.33 NG/DL (0.89-1.76); THYROID STIMULATING HORMONE 1.483 uIU/ML (0.55-4.78)
[2024-06-04 19:08] LABS: ALBUMIN 4.4 G/DL (3.2-5.2); ALKALINE PHOSPHATASE 70 U/L (35-104); ALT/SGPT 23 U/L (7.0-40); AST/SGOT 23 U/L (<34); BILIRUBIN,TOTAL 0.4 MG/DL (0.3-1.2); BLOOD UREA NITROGEN 13 MG/DL (9-23); CALCIUM LEVEL 9.6 MG/DL (8.5-10.1); CARBON DIOXIDE LEVEL 30 MMOL/L (20-31); CHLORIDE LEVEL 101 MMOL/L (98-107); CHOLESTEROL LEVEL 212 MG/DL (<200); CHOLESTEROL RISK RATIO 2.39 (<5); CREATININE FOR GFR 0.73 MG/DL (0.55-1.30); GLOMERULAR FILTRATION RATE > 60.0 (>60); GLUCOSE, FASTING 76 MG/DL (60-100); HDL CHOLESTEROL 88.6 MG/DL (>40); IRON (FE) 105 UG/DL (50-170); LDL CHOLESTEROL 109.8 MG/DL (<100); NON-HDL-C 123.4 MG/DL; PERCENT SATURATION 36.8 % (13.2-45.0); POTASSIUM SERUM 3.9 MMOL/L (3.5-5.1); SODIUM LEVEL 137 MMOL/L (136-145); TOTAL IRON BINDING CAPACITY 285 UG/DL (250-425); TOTAL PROTEIN 7.6 G/DL (5.7-8.2); TRIGLYCERIDES LEVEL 68 MG/DL (<150)
== END ==
LOC: M SFHCPLAZ 14:31
PROVIDERS: ATTEND Nurse Practitioner Family
DX: D50.9 Iron deficiency anemia, unspecified (principal); R53.83 Other fatigue; Z13.220 Encounter for screening for lipoid disorders; E55.9 Vitamin D deficiency, unspecified

== ENCOUNTER → 2024-09-14 | Outpatient (REF) | payer BC ==
[2024-09-16 16:52] LABS: HPV APTIMA Not Detected (Not Detected)
== END ==
LOC: M PLALAB 15:47
PROVIDERS: ATTEND Obstetrics & Gynecology
DX: Z01.419 Encounter for gynecological examination (general) (routine) without abnormal findings (principal)
CPT/HCPCS: 87624; G0123